=== PATIENT | female | born 1970 | race Caucasian/White ===

== ENCOUNTER 2017-05-30 16:16 | Emergency (ER) | payer MEDICARE ==
[2017-05-30 18:09] LABS: Eosinophils % (Auto) 2.9 % (0.0-4.3); Hematocrit 43.3 % (30.3-42.9); Hemoglobin 15.1 gm/dl (10.1-14.3); Mean Corpuscular HGB Conc 35 % (30-34); Mean Corpuscular Hemoglobin 31 pg (28-32); Mean Corpuscular Volume 90 fl (79-97); Platelet Count 232 K/mm3 (140-440); Red Blood Count 4.81 M/mm3 (3.65-5.03); Red Cell Distribution Width 13.4 % (13.2-15.2); White Blood Count 8.9 K/mm3 (4.5-11.0)
[2017-05-30 19:00] LABS: Alanine Aminotransferase 14 units/L (7-56); Albumin 4.6 g/dL (3.9-5); Albumin/Globulin Ratio 1.8 %; Alkaline Phosphatase 166 units/L (35-129); Anion Gap 19 mmol/L; BUN/Creatinine Ratio 18.88; Blood Urea Nitrogen 17 mg/dL (7-17); Calcium 9.7 mg/dL (8.4-10.2); Carbon Dioxide 26 mmol/L (22-30); Chloride 101.8 mmol/L (98-107); Glucose 89 mg/dL (65-100); Potassium 5.2 mmol/L (3.6-5.0); Sodium 142 mmol/L (137-145); Total Protein 7.2 g/dL (6.3-8.2)
[2017-05-31] MEDS ORDERED: NACL 0.9% 1000 ML 1,000 ML ONE (05:02)
[2017-05-31 08:03] LABS: Bacteria,Urine 1+ /HPF (Negative); Bilirubin,Urine NEG (Negative); Blood,Urine NEG (Negative); Ketones,Urine NEG (Negative); Leukocyte Esterase,Urine NEG (Negative); Mucus,Urine 3+ /HPF; Nitrite,Urine NEG (Negative); Urobilinogen,Urine < 2.0 mg/dL (<2.0)
[2017-05-31] MEDS ORDERED: NACL 0.9% 1000 ML 1,000 ML IV ONE (08:06)
[2017-05-31] MEDS ORDERED: TORADOL IV ONE (08:06)
--- NOTE | 2017-05-31 08:12 | Emergency Department Report ---
ED Abdominal Pain HPI - General Chief Complaint: Chest Pain Stated Complaint: RIGHT SIDE HIP/LOWER BACK PAIN Time Seen by Provider: 05/31/17 08:01 Source: patient Mode of arrival: Ambulatory Limitations: Physical Limitation - History of Present Illness Initial Comments: Patient is a 46-year-old female with a history of chronic back pain here with complaint of abdominal pain. Patient initially complained of chest pain and shortness of breath in triage in addition to her abdominal pain. She did not wish these complaints to me. She has tenderness in her right lower quadrant according to her she's had this for over a year however it worsened over the last 3 days and she's been unable to lay flat. He denies fevers chills. She's had a decreased appetite. She appears well. MD Complaint: abdominal pain -: days(s) (3 days) Location: RLQ (3) Radiation: none Migration to: no migration Severity: moderate Severity scale (0 -10): 8 Quality: cramping, aching Consistency: constant Improves With: nothing Worsens With: nothing Associated Symptoms: denies: nausea, vomiting, fever - Related Data Home Medications Medication Instructions Recorded Confirmed Last Taken Flecainide [Tambocor] 150 tab PO BID 10/17/14 06/05/15 02/22/15 Gabapentin 600 cap PO BID 10/17/14 06/05/15 02/22/15 Apixaban [Eliquis] 5 mg PO DAILY 06/05/15 06/05/15 06/02/15 Atenolol [Tenormin] 25 mg PO DAILY 06/05/15 06/05/15 Unknown Omeprazole [PriLOSEC] 40 mg PO QDAY 06/05/15 06/05/15 Unknown Ranitidine HCl [Zantac 150 MG TAB] 150 mg PO DAILY 06/05/15 06/05/15 Unknown Tizanidine HCl [tiZANidine] 4 mg PO BID 06/05/15 06/05/15 Unknown Previous Rx's Medication Instructions Recorded Last Taken Type HYDROcodone/APAP 10-325 [[place] 1 each PO Q6HR PRN #14 tablet 05/31/17 Unknown Rx 10-325 mg TAB] Levofloxacin [Levaquin TAB] 500 mg PO QDAY #10 tablet 05/31/17 Unknown Rx metroNIDAZOLE [Flagyl] 500 mg PO Q8HR #30 tablet 05/31/17 Unknown Rx Allergies Allergy/AdvReac Type Severity Reaction Status Date / Time latex Allergy Rash Verified 10/31/14 16:12 morphine Allergy Itching Verified 10/31/14 16:12 ED Review of Systems ROS: Stated complaint: RIGHT SIDE HIP/LOWER BACK PAIN Other details as noted in HPI Comment: All other systems reviewed and negative Constitutional: denies: chills, fever Eyes: denies: eye pain, eye discharge, vision change ENT: denies: ear pain, throat pain Respiratory: denies: cough, shortness of breath, wheezing Cardiovascular: denies: chest pain, palpitations Endocrine: no symptoms reported Gastrointestinal: abdominal pain. denies: nausea, diarrhea Genitourinary: denies: urgency, dysuria, discharge Musculoskeletal: denies: back pain, joint swelling, arthralgia Skin: denies: rash, lesions Neurological: denies: headache, weakness, paresthesias Psychiatric: denies: anxiety, depression Hematological/Lymphatic: denies: easy bleeding, easy bruising ED Past Medical Hx - Past Medical History Hx Hypertension: Yes Hx CVA: Yes Hx GERD: Yes Hx Arthritis: Yes (LOWER BACK, NECK, SHOULDER;) Hx HIV: No - Surgical History Hx Cholecystectomy: Yes ('98) Additional Surgical History: knee surgery x 2, tubal ligation, carpal tunnel surgery, eye surgerybrain aneurysm x 2 repair - Social History Smoking Status: Current Every Day Smoker Substance Use Type: None, Marijuana - Medications Home Medications: Home Medications Medication Instructions Recorded Confirmed Last Taken Type Flecainide [Tambocor] 150 tab PO BID 10/17/14 06/05/15 02/22/15 History Gabapentin 600 cap PO BID 10/17/14 06/05/15 02/22/15 History Apixaban [Eliquis] 5 mg PO DAILY 06/05/15 06/05/15 06/02/15 History Atenolol [Tenormin] 25 mg PO DAILY 06/05/15 06/05/15 Unknown History Omeprazole [PriLOSEC] 40 mg PO QDAY 06/05/15 06/05/15 Unknown History Ranitidine HCl [Zantac 150 MG TAB] 150 mg PO DAILY 06/05/15 06/05/15 Unknown History Tizanidine HCl [tiZANidine] 4 mg PO BID 06/05/15 06/05/15 Unknown History HYDROcodone/APAP 10-325 [[place] 1 each PO Q6HR PRN #14 tablet 05/31/17 Unknown Rx 10-325 mg TAB] Levofloxacin [Levaquin TAB] 500 mg PO QDAY #10 tablet 05/31/17 Unknown Rx metroNIDAZOLE [Flagyl] 500 mg PO Q8HR #30 tablet 05/31/17 Unknown Rx ED Physical Exam - General Limitations: Physical Limitation General appearance: alert, in no apparent distress - Head Head exam: Present: atraumatic, normocephalic - Eye Eye exam: Present: normal appearance. Absent: scleral icterus, conjunctival injection - ENT ENT exam: Present: mucous membranes moist - Neck Neck exam: Present: normal inspection - Respiratory Respiratory exam: Present: normal lung sounds bilaterally. Absent: respiratory distress - Cardiovascular Cardiovascular Exam: Present: regular rate, normal rhythm. Absent: systolic murmur, diastolic murmur, rubs, gallop - GI/Abdominal GI/Abdominal exam: Present: soft, tenderness (tender in the right lower quadrant ), guarding (mild voluntary guarding), normal bowel sounds. Absent: distended, rebound - Extremities Exam Extremities exam: Present: normal inspection - Back Exam Back exam: Present: normal inspection. Absent: CVA tenderness (R), CVA tenderness (L) - Neurological Exam Neurological exam: Present: alert, oriented X3 - Psychiatric Psychiatric exam: Present: normal affect, normal mood - Skin Skin exam: Present: warm, dry, intact, normal color. Absent: rash ED Course Vital Signs 05/30/17 05/30/17 05/31/17 17:22 22:22 07:41 Temperature 98.4 F 98.1 F Pulse Rate 73 69 Respiratory 20 18 Rate Blood Pressure 111/73 117/74 Blood Pressure [Left] O2 Sat by Pulse 97 99 99 Oximetry 05/31/17 05/31/17 05/31/17 07:50 07:54 08:00 Temperature 97.6 F Pulse Rate 75 66 66 Respiratory 15 18 15 Rate Blood Pressure 120/76 121/67 Blood Pressure 121/67 [Left] O2 Sat by Pulse 95 98 97 Oximetry 05/31/17 05/31/17 05/31/17 08:10 08:20 08:25 Temperature Pulse Rate 68 59 L Respiratory 13 15 18 Rate Blood Pressure 121/67 120/76 Blood Pressure [Left] O2 Sat by Pulse 97 99 Oximetry 05/31/17 05/31/17 05/31/17 08:42 08:43 08:50 Temperature Pulse Rate 68 75 Respiratory 18 Rate Blood Pressure 120/76 107/60 Blood Pressure 116/65 [Left] O2 Sat by Pulse 99 Oximetry 05/31/17 05/31/17 05/31/17 09:00 09:10 09:20 Temperature Pulse Rate 74 70 70 Respiratory 19 16 16 Rate Blood Pressure 113/69 113/69 112/68 Blood Pressure [Left] O2 Sat by Pulse 96 96 96 Oximetry ED Medical Decision Making - Lab Data Result diagrams: 05/30/17 18:00 05/30/17 18:00 Laboratory Results - last 24 hr 05/30/17 05/30/17 05/30/17 18:00 18:00 18:00 WBC 8.9 RBC 4.81 Hgb 15.1 H Hct 43.3 H MCV 90 MCH 31 MCHC 35 H RDW 13.4 Plt Count 232 Lymph % (Auto) 38.2 H [place] % (Auto) 9.8 H Eos % (Auto) 2.9 Baso % (Auto) 1.0 Lymph # 3.4 [place] # 0.9 H Eos # 0.3 Baso # 0.1 Seg Neutrophils % 48.1 Seg Neutrophils # 4.3 Sodium 142 Potassium 5.2 H Chloride 101.8 Carbon Dioxide 26 Anion Gap 19 BUN 17 Creatinine 0.9 Estimated GFR > 60 BUN/Creatinine Ratio 18.88 Glucose 89 Calcium 9.7 Total Bilirubin 0.20 AST 18 ALT 14 Alkaline Phosphatase 166 H Troponin T < 0.010 Total Protein 7.2 Albumin 4.6 Albumin/Globulin Ratio 1.8 Urine Color Urine Turbidity Urine pH Ur Specific [place] Urine Protein Urine Glucose (UA) Urine Ketones Urine Blood Urine Nitrite Urine Bilirubin Urine Urobilinogen Ur Leukocyte Esterase Urine WBC (Auto) Urine RBC (Auto) U Epithel Cells (Auto) Urine Bacteria (Auto) Urine Mucus 05/30/17 05/30/17 05/31/17 20:21 23:25 07:44 WBC RBC Hgb Hct MCV MCH MCHC RDW Plt Count Lymph % (Auto) [place] % (Auto) Eos % (Auto) Baso % (Auto) Lymph # [place] # Eos # Baso # Seg Neutrophils % Seg Neutrophils # Sodium Potassium Chloride Carbon Dioxide Anion Gap BUN Creatinine Estimated GFR BUN/Creatinine Ratio Glucose Calcium Total Bilirubin AST ALT Alkaline Phosphatase Troponin T < 0.010 < 0.010 Total Protein Albumin Albumin/Globulin Ratio Urine Color Yellow Urine Turbidity Slightly-cloudy Urine pH 5.0 Ur Specific [place] 1.026 Urine Protein 30 mg/dl Urine Glucose (UA) Neg Urine Ketones Neg Urine Blood Neg Urine Nitrite Neg Urine Bilirubin Neg Urine Urobilinogen < 2.0 Ur Leukocyte Esterase Neg Urine WBC (Auto) 2.0 Urine RBC (Auto) 6.0 U Epithel Cells (Auto) 10.0 Urine Bacteria (Auto) 1+ Urine Mucus 3+ - EKG Data -: EKG Interpreted by Me - EKG Data 05/31/17 08:10 Normal sinus rhythm rate of 69 and normal axis normal intervals no ST-T wave changes - Medical Decision Making 38-year-old female here with complaint of abdominal pain and initially chest pain. Her chest pain evaluation is essentially unremarkable. She has an EKG that shows normal sinus rhythm without ischemic changes she has 2 negative troponins. I do not feel that she has a thick ACS. She is tender in her right lower quadrant and this is her main complaint to me in the main emergency department. Her labs are unremarkable but she warrants a CAT scan given her amount of discomfort. Plan to CT if negative will discharge home. Patient has a follow-up with her primary care on the . CT shows mild ileus versus enterocolitis. Patient has no white count and no fever. This may be infectious however it is unlikely. Plan discharge her home. Portions of this chart were dictated with dictation software. There may be dictation errors contained within this note. Critical care attestation.: If time is entered above; I have spent that time in minutes in the direct care of this critically ill patient, excluding procedure time. ED Disposition Clinical Impression: Abdominal pain, Diarrhea Disposition: DC-01 TO HOME OR SELFCARE Is pt being admited?: No Does the pt Need Aspirin: No Condition: Stable Instructions: Gastroenteritis (ED), Acute Abdominal Pain (ED) Prescriptions: HYDROcodone/APAP 10-325 [[place] 10-325 mg TAB] 1 each PO Q6HR PRN #14 tablet PRN Reason: Pain Levofloxacin [Levaquin TAB] 500 mg PO QDAY #10 tablet metroNIDAZOLE [Flagyl] 500 mg PO Q8HR #30 tablet Referrals: PRIMARY CARE, [Primary Care Provider] - 3-5 Days
[2017-05-31] MEDS ORDERED: NACL ONE (08:27)
--- NOTE | 2017-05-31 09:14 | Cat Scan Report ---
FINAL REPORT EXAM: CT ABDOMEN PELVIS W CON HISTORY: abdominal pain, RLQ TECHNIQUE: CT abdomen and pelvis performed. Images extend from diaphragm to pubic symphysis. 100 cc Omnipaque 300 IV was administered. No oral contrast was administered. PRIORS: None. FINDINGS: The visualized aspects of the lung bases are clear. The patient is status post cholecystectomy. There is mild intrahepatic and extrahepatic biliary prominence/dilatation. This may represent post cholecystectomy biliary ectasia. Biliary obstruction is not excluded, however. Correlate clinically. There is several tiny hepatic cysts The visualized liver, spleen, pancreas, adrenal glands and kidneys demonstrate no significant abnormalities. There is no abdominal aortic aneurysm. There is no evidence of intestinal obstruction. There are some air-fluid levels in the right colon and transverse colon. There is no wall thickening or other inflammatory change. This could reflect ileus or enterocolitis. The appendix is normal. There is no free intraperitoneal air. The bladder is unremarkable. There is no abnormal pelvic mass or fluid collections seen. IMPRESSION: Normal appendix. There is intrahepatic and extrahepatic mild biliary dilatation. This may reflect post cholecystectomy biliary ectasia although biliary obstruction is not entirely excluded, however. Correlate clinically. Nonspecific air-fluid levels in proximal 2/3 of the colon without other inflammatory change or wall thickening. This could reflect ileus or enterocolitis.
[2017-05-31] MEDS ORDERED: ROXICODONE PO ONE (11:11)
[2017-05-31 11:32] VITALS: BP 118/79
== END 2017-05-31 11:32 | disposition home or self-care (01) ==
LOC: ED 16:16
DX: R10.31 Right lower quadrant pain (principal); R19.7 Diarrhea, unspecified; I10 Essential (primary) hypertension; K21.9 Gastro-esophageal reflux disease without esophagitis; F17.200 Nicotine dependence, unspecified, uncomplicated; F12.90 Cannabis use, unspecified, uncomplicated; Z86.73 Personal history of transient ischemic attack (TIA), and cerebral infarction without residual deficits; Z88.5 Allergy status to narcotic agent; Z91.040 Latex allergy status
CPT/HCPCS: 36415; 74177; 80053; 81001; 84484; 85025; 93005; 93010; 96361; 96374; 99285; J1885; J7030; Q9967

== ENCOUNTER 2019-08-01 15:36 | Emergency (ER) | payer MEDICARE ==
--- NOTE | 2019-08-01 16:07 | Event Note ---
ED Screening Note Date of service: 08/01/19 Time: 16:02 ED Screening Note: This is a 48 y.o. F. that presents to the ER with dyspnea, cough, and chest pain for 3 days. PMH HLD, anxiety, PTSD, bipolar, and depression Current smoker Patient states her daughter was sick last week and she think she caught it. This initial assessment/diagnostic orders/clinical plan/treatment(s) is/are subject to change based on patients health status, clinical progression and re- assessment by fellow clinical providers in the ED. Further treatment and workup at subsequent clinical providers discretion. Patient/guardian urged not to elope from the ED as their condition may be serious if not clinically assessed and managed. Initial orders include: CXR, EKG, & labs
--- NOTE | 2019-08-01 16:48 | XRay Report ---
CHEST 2 VIEWS INDICATION / CLINICAL INFORMATION: Dyspnea and chest pain. COMPARISON: None available. FINDINGS: SUPPORT DEVICES: None. HEART / MEDIASTINUM: The heart size and pulmonary vasculature are normal. The aorta is normal in mariam perez. LUNGS / PLEURA: No significant pulmonary or pleural abnormality. No pneumothorax. ADDITIONAL FINDINGS: There are surgical changes in the lower cervical spine. The gallbladder is surgi choco absent. IMPRESSION: No acute findings. Signer Name: Lexx Pedro MD Signed: 08/01/2019 4:43 PM Workstation Name: [id number]
[2019-08-01 17:17] LABS: Basophils % (Auto) 0.3 % (0.0-1.8); Hemoglobin 14.4 gm/dl (10.1-14.3); Lymphocytes # (Auto) 1.6 K/mm3 (1.2-5.4); Lymphocytes % (Auto) 12.8 % (13.4-35.0); Mean Corpuscular HGB Conc 34 % (30-34); Mean Corpuscular Volume 91 fl (79-97); Monocytes # (Auto) 0.7 K/mm3 (0.0-0.8); Monocytes % (Auto) 5.6 % (0.0-7.3); Platelet Count 245 K/mm3 (140-440); Red Blood Count 4.76 M/mm3 (3.65-5.03); Red Cell Distribution Width 13.7 % (13.2-15.2)
[2019-08-01 17:40] LABS: BUN/Creatinine Ratio 17; Blood Urea Nitrogen 10 mg/dL (7-17); Calcium 9.6 mg/dL (8.4-10.2); Hemolysis Index 21
[2019-08-01] MEDS ORDERED: LIDOCAINE VISCOUS 2% PO ONE (19:54)
[2019-08-01] MEDS ORDERED: ALUM-MAG HYDROX-SIMETH 200-200-20MG/5ML PO ONE (19:54)
[2019-08-01] MEDS ORDERED: TORADOL IM ONE (19:55)
[2019-08-01] MEDS ORDERED: PERCOCET 5/325 PO ONE (19:55)
[2019-08-01] MEDS ORDERED: XANAX PO ONE (19:55)
--- NOTE | 2019-08-01 21:51 | Emergency Department Report ---
ED General Adult HPI - General Chief complaint: Chest Pain Stated complaint: CHEST PAIN (AFIB) Time Seen by Provider: 08/01/19 16:01 Source: patient Mode of arrival: Ambulatory Limitations: No Limitations - History of Present Illness Initial comments: Patient is a 48-year-old female with a history of hypertension, chronic anxiety and chronic pain who presents to the ED with complaint of nausea, vomiting, epigastric pain, sore throat, chest burning chest pain, nasal and sinus congestion for the last 3 days. Patient states that she ran out of her anxiety medications and pain medications about 4 days ago. Patient has been taking oxycodone 10 mg and Xanax 2 mg but ran out of her medications and has not been able to fill them. Patient stated that she is not scheduled to see primary care physician who usually writes her prescription medications in about one week time period. Patient denies dizziness, syncope, diarrhea, dysuria, urinary frequency and urgency, shortness of breath, fever, chills, cough, change in vision or headache. MD Complaint: Nausea, vomiting, epigastric pain, ran out of her narcotic pain medications -: Sudden, days(s) (3) Location: abdomen Radiation: non-radiation Severity scale (0 -10): 4 Quality: aching, sharp Consistency: intermittent Improves with: none Worsens with: none Associated Symptoms: denies other symptoms, chest pain, loss of appetite, malaise, nausea/vomiting. denies: confusion, cough, diaphoresis, fever/chills, headaches, rash, seizure, shortness of breath, syncope, weakness Treatments Prior to Arrival: none - Related Data Home Medications Medication Instructions Recorded Confirmed Last Taken Flecainide [Tambocor] 150 tab PO BID 10/17/14 01/09/19 02/22/15 Atenolol [Tenormin] 25 mg PO BID 06/05/15 01/10/19 Unknown ALPRAZolam [Xanax] 1 mg PO Q8H PRN 01/10/19 01/10/19 1 Day Ago ~01/09/19 Pantoprazole [Protonix TAB] 40 mg PO QDAY 01/10/19 01/10/19 1 Day Ago ~01/09/19 oxyCODONE [roxiCODONE] 10 mg PO Q6HR PRN 01/10/19 01/10/19 1 Day Ago ~01/09/19 Previous Rx's Medication Instructions Recorded Last Taken Type Apixaban [Eliquis] 5 mg PO BID #60 tablet 01/11/19 Unknown Rx AtorvaSTATin [Lipitor] 40 mg PO QHS #30 tablet 01/11/19 Unknown Rx Gabapentin [Neurontin] 600 mg PO BID capsule 01/11/19 Unknown Rx oxyCODONE [Roxicodone] 5 mg PO QHS PRN #5 tablet 01/11/19 Unknown Rx Dicyclomine [Bentyl] 20 mg PO Q6H PRN #20 tablet 08/01/19 Unknown Rx Famotidine [Pepcid] 40 mg PO DAILY #30 tablet 08/01/19 Unknown Rx Ondansetron [Zofran Odt] 4 mg PO Q6HR PRN #20 tab.rapdis 08/01/19 Unknown Rx hydrOXYzine PAMOATE [Vistaril] 50 mg PO Q6HR PRN #30 capsule 08/01/19 Unknown Rx Allergies Allergy/AdvReac Type Severity Reaction Status Date / Time latex Allergy Rash Verified 10/31/14 16:12 morphine Allergy Itching Verified 10/31/14 16:12 NSAIDS (Non-Steroidal AdvReac Unknown Verified 08/01/19 20:32 Anti-Inflamma Poultry Allergy Hives Uncoded 01/10/19 16:23 ED Review of Systems ROS: Stated complaint: CHEST PAIN (AFIB) Other details as noted in HPI Constitutional: denies: chills, fever Eyes: denies: eye pain, eye discharge, vision change ENT: congestion. denies: ear pain, throat pain Respiratory: denies: cough, shortness of breath, wheezing Cardiovascular: denies: chest pain, palpitations Endocrine: no symptoms reported Gastrointestinal: abdominal pain, nausea, vomiting. denies: diarrhea Genitourinary: denies: urgency, dysuria, discharge Musculoskeletal: denies: back pain, joint swelling, arthralgia Skin: denies: rash, lesions Neurological: denies: headache, weakness, paresthesias Psychiatric: anxiety. denies: depression Hematological/Lymphatic: denies: easy bleeding, easy bruising ED Past Medical Hx - Past Medical History Previous Medical History?: Yes Hx Hypertension: Yes Hx CVA: Yes Hx Congestive Heart Failure: No Hx Diabetes: No Hx GERD: Yes Hx Arthritis: Yes (LOWER BACK, NECK, SHOULDER;) Hx Psychiatric Treatment: Yes (BIPOLAR,ANXIETY,PTSD) Hx Asthma: Yes Hx COPD: No Hx HIV: No Additional medical history: LIVER LESIONS - Surgical History Past Surgical History?: Yes Hx Cholecystectomy: Yes () Additional Surgical History: knee surgery x 2, tubal ligation, carpal tunnel surgery, eye surgerybrain aneurysm x 2 repair - Social History Smoking Status: Current Every Day Smoker Substance Use Type: Marijuana - Medications Home Medications: Home Medications Medication Instructions Recorded Confirmed Last Taken Type Flecainide [Tambocor] 150 tab PO BID 10/17/14 01/09/19 02/22/15 History Atenolol [Tenormin] 25 mg PO BID 06/05/15 01/10/19 Unknown History ALPRAZolam [Xanax] 1 mg PO Q8H PRN 01/10/19 01/10/19 1 Day Ago History ~01/09/19 Pantoprazole [Protonix TAB] 40 mg PO QDAY 01/10/19 01/10/19 1 Day Ago History ~01/09/19 oxyCODONE [roxiCODONE] 10 mg PO Q6HR PRN 01/10/19 01/10/19 1 Day Ago History ~01/09/19 Apixaban [Eliquis] 5 mg PO BID #60 tablet 01/11/19 Unknown Rx AtorvaSTATin [Lipitor] 40 mg PO QHS #30 tablet 01/11/19 Unknown Rx Gabapentin [Neurontin] 600 mg PO BID capsule 01/11/19 Unknown Rx oxyCODONE [Roxicodone] 5 mg PO QHS PRN #5 tablet 01/11/19 Unknown Rx Dicyclomine [Bentyl] 20 mg PO Q6H PRN #20 tablet 08/01/19 Unknown Rx Famotidine [Pepcid] 40 mg PO DAILY #30 tablet 08/01/19 Unknown Rx Ondansetron [Zofran Odt] 4 mg PO Q6HR PRN #20 tab.rapdis 08/01/19 Unknown Rx hydrOXYzine PAMOATE [Vistaril] 50 mg PO Q6HR PRN #30 capsule 08/01/19 Unknown Rx ED Physical Exam - General Limitations: No Limitations General appearance: alert, in no apparent distress - Head Head exam: Present: atraumatic, normocephalic, normal inspection - Eye Eye exam: Present: normal appearance, PERRL, EOMI Pupils: Present: normal accommodation - ENT ENT exam: Present: normal exam, normal orophraynx, mucous membranes moist, TM's normal bilaterally, normal external ear exam - Neck Neck exam: Present: normal inspection, full ROM. Absent: tenderness - Respiratory Respiratory exam: Present: normal lung sounds bilaterally. Absent: respiratory distress, wheezes, rhonchi, chest wall tenderness, accessory muscle use, decreased breath sounds - Cardiovascular Cardiovascular Exam: Present: regular rate, normal rhythm, normal heart sounds. Absent: systolic murmur, diastolic murmur, rubs, gallop - GI/Abdominal GI/Abdominal exam: Present: soft, normal bowel sounds. Absent: tenderness, guarding, rebound, hyperactive bowel sounds - Extremities Exam Extremities exam: Present: normal inspection, full ROM, normal capillary refill - Back Exam Back exam: Present: normal inspection, full ROM. Absent: CVA tenderness (L), muscle spasm - Neurological Exam Neurological exam: Present: alert, oriented X3, CN II-XII intact, normal gait, reflexes normal - Psychiatric Psychiatric exam: Present: normal affect, normal mood - Skin Skin exam: Present: warm, dry, intact, normal color. Absent: rash ED Course Vital Signs 08/01/19 16:02 Temperature 98.2 F Pulse Rate 68 Respiratory 22 Rate Blood Pressure 112/73 O2 Sat by Pulse 97 Oximetry - Reevaluation(s) Reevaluation #1: 08/01/19 22:01 This is a 48-year-old female who presented to the ED with nausea, vomiting, epigastric pain, sore throat and substernal burning chest pain for 3 days after she did not of her narcotic pain medications. In the ED, patient is alert and oriented 3 and is not in distress. Lab test results were reviewed and shows acute leukocytosis of 12,400. The rest of the lab test results are none actionable. Chest x-ray shows no acute cardio pulmonary commodities. Throughout the physical exam the patient lamented how the reason why she came to the ED was to get her prescriptions refilled which included oxycodone and Xanax. Patient was advised that these medications are controlled substances and can only be prescribed by the same provider that she sees outside the hospital and that her primary care physician Dr. Guillen. Patient was advised to follow- up with Dr. garcía to refill her oxycodone's and Xanax. Initial dose of the same medication given to the patient in the ED and the patient was advised to follow-up with Dr. Robert michael in the morning to have her prescriptions refilled. Patient was otherwise discharged home on antiemetics, antacids and advised to follow-up with Dr. garcía or return to the ED immediately if symptoms get worse. ED Medical Decision Making - Lab Data Result diagrams: 08/01/19 17:03 08/01/19 17:03 - Radiology Data Radiology results: report reviewed, image reviewed Chest x-ray shows no acute cardiopulmonary abnormalities. - Medical Decision Making This is a 48-year-old female who presented to the ED with nausea, vomiting, epigastric pain, sore throat and substernal burning chest pain for 3 days after she did not of her narcotic pain medications. In the ED, patient is alert and oriented 3 and is not in distress. Lab test results were reviewed and shows acute leukocytosis of 12,400. The rest of the lab test results are none actionable. Chest x-ray shows no acute cardio pulmonary commodities. Throughout the physical exam the patient lamented how the reason why she came to the ED was to get her prescriptions refilled which included oxycodone and Xanax. Patient was advised that these medications are controlled substances and can only be prescribed by the same provider that she sees outside the hospital and that her primary care physician Dr. Guillen. Patient was advised to follow- up with Dr. garcía to refill her oxycodone's and Xanax. Initial dose of the same medication given to the patient in the ED and the patient was advised to follow-up with Dr. Robert michael in the morning to have her prescriptions refilled. Patient was otherwise discharged home on antiemetics, antacids and advised to follow-up with Dr. garcía or return to the ED immediately if symptoms get worse. - Differential Diagnosis GERD; Vomiting; Anxiety; Narcotic withdrawal syndrome Critical care attestation.: If time is entered above; I have spent that time in minutes in the direct care of this critically ill patient, excluding procedure time. ED Disposition Clinical Impression: Anxiety as acute reaction to exceptional stress, Nausea and vomiting in adult GERD (gastroesophageal reflux disease) Qualifiers: Esophagitis presence: without esophagitis Qualified Code(s): K21.9 - Gastro- esophageal reflux disease without esophagitis Disposition: TO HOME OR SELFCARE Is pt being admited?: No Does the pt Need Aspirin: No Condition: Stable Instructions: Gastroesophageal Reflux Disease (ED), Acute Nausea and Vomiting (ED), Acute Abdominal Pain (ED) Additional Instructions: Maintain a clear liquid diet for 12-24 hours, take medications and follow-up with your primary care physician in 2-3 days for reevaluation. Return to the ED immediately if symptoms get worse Prescriptions: Dicyclomine [Bentyl] 20 mg PO Q6H PRN #20 tablet PRN Reason: Pain , Severe (7-10) Famotidine [Pepcid] 40 mg PO DAILY #30 tablet hydrOXYzine PAMOATE [Vistaril] 50 mg PO Q6HR PRN #30 capsule PRN Reason: Anxiety Ondansetron [Zofran Odt] 4 mg PO Q6HR PRN #20 tab.rapdis PRN Reason: Nausea Referrals: HATTIE GUILLEN MD [Primary Care Provider] - 3-5 Days Time of Disposition: 21:53 Print Language: GEORGIAN
[2019-08-01 22:06] VITALS: BP 118/63
== END 2019-08-01 22:06 | disposition home or self-care (01) ==
LOC: ED 15:36
DX: K21.9 Gastro-esophageal reflux disease without esophagitis (principal); F41.9 Anxiety disorder, unspecified
CPT/HCPCS: 36415; 71046; 80048; 84484; 85025; 93005; 93010; 99284; J1885